=== PATIENT | female | born 1970 | race Caucasian/White ===

== ENCOUNTER 2019-05-20 05:46 | Day surgery (SDC) | payer SELFPAY | END 2019-05-20 10:30 | disposition home or self-care (01) | PROVIDERS: Family Provider Family Medicine; Visit Provider Orthopaedic Surgery | DX: S63.592A Other specified sprain of left wrist, initial encounter (principal); X50.9XXA Other and unspecified overexertion or strenuous movements or postures, initial encounter ==

== ENCOUNTER 2019-09-04 01:44 | Emergency (ER) | payer OTHER, SELFPAY ==
[2019-09-04 01:50] VITALS: BP 193/111; PULSE 64; RESP 18; TEMP 36.6; O2SAT 98; BMI 38.9
--- NOTE | 2019-09-04 01:51 | US_ITS ---
WS: [id number] ULTRASOUND ABDOMEN LIMITED CLINICAL INFORMATION: abd pain COMPARISON: None. FINDINGS: Liver Size: Normal. Craniocaudal length: 13.4 cm. Echogenicity: Normal. Surface nodularity: None. Mass (size and location): None. Bile ducts Intrahepatic ducts: Normal. Common bile duct diameter: 0.4 cm. Gallbladder Normal. Gallstones: None. Gallbladder sludge: None. Gallbladder wall thickening: None. Pericholecystic fluid: None. Sonographic Earl sign: Absent. Pancreas Normal as visualized. Right kidney: Normal. Hydronephrosis: None. Size: 11.5 cm x 4.7 cm x 4.2 cm. Abdominal aorta and IVC Visualized portions are normal. Ascites: None. US/US gall bladder [id number] IMPRESSION: Normal abdominal ultrasound. Normal gallbladder.
--- NOTE | 2019-09-04 01:51 | XR_ITS ---
WS: [id number] CHEST XRAY TECHNIQUE: Portable chest. CLINICAL INFORMATION: cp COMPARISON: None. FINDINGS: Heart: Normal cardiac silhouette. Lungs: Lungs are clear. No consolidation or pleural effusion. Bones: Normal visualized bony structures. XR/XR chest 1V portable [id number] IMPRESSION: Normal chest
--- NOTE | 2019-09-04 01:53 | ED_ITS ---
HPI - Abdominal Pain General: Chief Complaint: Abdominal Pain Stated Complaint: abd pain Time Seen by Provider: 09/04/19 01:45 Source: patient Mode of arrival: ambulatory Limitations: no limitations History of Present Illness: HPI narrative: 48-year-old female states she been having right upper quadrant pain throughout the night. States the pain radiates to her right shoulder and also right sided chest. She has point tenderness on the right side of her chest also. She states she has had gallbladder issues in the past. She has had some nausea with no vomiting. She rates her pain a 5 out of 10. MD elicited complaint: abdominal pain Pertinent past history: none Onset (ago): hour(s) Location: RUQ Quality: cramping Radiation: chest Exacerbating factors: nothing Relieving factors: nothing Associated Symptoms: Denies chills, diarrhea, dysuria, fever(s), nausea and vomiting Review of Systems Const: Denies: fever, chills, body aches or change in appetite Eyes: Denies: blurry vision or eye discomfort ENMT: Denies: throat pain or dental pain Card: Reports: chest pain Resp: Denies: shortness of breath GI: Reports: abdominal pain; Denies: nausea, vomiting or diarrhea : Denies: painful urination Musc: Denies: neck pain or back pain Skin/Breast: Denies: rash Neuro: Denies: headache Psych: Denies: depression Aniceto/Lymph: Denies: easy bruising All/Imm: Denies: hives PFS ED PFSH: Medical History Hypertension Surgical History History of surgery on left wrist Arthroscopic debridement of triangular fibrocartilage complex tear Family History Mother Hypertension Brother Hypertension Social History Smoking and tobacco status: never smoked Alcohol intake: never Physical Exam Const: COMMON NORMALS: no apparent distress, oriented x3 and healthy appearing HENMT: COMMON NORMALS: normocephalic and head/scalp atraumatic HEAD & SCALP: normocephalic and atraumatic Eye: COMMON NORMALS: PERRL and EOMs intact bilaterally PUPIL: Yes PERRL Neck/C-Spine: COMMON NORMALS: full ROM and supple Chest: COMMONS NORMALS: inspection of chest normal OTHER: right chest wall tenderness Resp: COMMON NORMALS: normal respiratory effort, no retractions, no use of accessory muscles and clear to auscultation bilaterally AUSCULTATION: clear to auscultation bilaterally Cardio: COMMON NORMALS: regular rate, regular rhythm and no murmurs RATE: regular rate RHYTHM: regular rhythm GI: COMMON NORMALS: normal to inspection, nondistended, normoactive bowel sounds, soft to palpation and no masses PALPATION: Yes soft and Yes tender Details: RUQ Extremity: COMMON NORMALS: normal to inspection and full ROM Neuro: COMMON NORMALS: oriented x3, moves all extremities and no focal motor deficits Psych: COMMON NORMALS: mental status grossly normal, thought process normal and cooperative THOUGHT PROCESS: normal thought process Skin: COMMON NORMALS: no rashes or lesions noted and no wounds GENERAL SKIN EXAM: no rashes or lesions noted Course Vital Signs: Vital signs: Vital Signs Temperature 97.8 F 09/04/19 01:50 Pulse Rate 58 L 09/04/19 03:00 Respiratory Rate 20 H 09/04/19 03:00 Blood Pressure 149/88 09/04/19 03:00 Pulse Oximetry 99 09/04/19 03:00 MDM - Abdominal Pain MDM Narrative: Medical decision making narrative: Patient presents here with right upper quadrant abdominal pain lab work and ultrasound here are negative. Patient also has right-sided chest pain. This is likely costochondritis that she is point tender to touch is worse with deep breaths then. She has no signs of coronary cause or pulmonary bruising. Patient is stable for discharge and to follow-up with her primary care doctor in 3 to 5 days. Lab Data: Labs: Lab Results 09/04/19 09/04/19 Range/Units 02:00 02:00 WBC 9.7 (4.0-10.0) 10^3/ uL RBC 4.91 (4.1-5.3) 10^6/u L Hgb 13.4 (11.5-15.3) g/dL Hct 42.0 (37.0-47.0) % MCV 85.5 (81-99) fL MCH 27.3 L (28.0-34.0) pg MCHC 31.9 (30.0-36.0) g/dL RDW 12.9 (12.1-15.1) % Plt Count 283 (130-400) 10^3/c mm MPV 10.9 H (7.4-10.4) fL Neut % (Auto) 46.2 % Lymph % (Auto) 42.5 % Chase % (Auto) 7.4 % Eos % (Auto) 2.8 % Baso % (Auto) 0.7 % Neut # (Auto) 4.5 (1.8-7.7) 10^3/u L Lymph # (Auto) 4.1 (0.8-4.8) 10^3/u L Chase # (Auto) 0.7 (0.2-0.9) 10^3/u L Eos # (Auto) 0.3 (0.0-0.8) 10^3/u L Baso # (Auto) 0.1 (0.0-0.1) 10^3/u L Nucleated RBC % (a uto) 0 % Nucleated RBCs # 0.0 /100WBC Sodium 138 (136-145) mmol/L Potassium 3.7 (3.5-5.1) mmol/L Chloride 100 (98-107) mmol/L Carbon Dioxide 24 (22-29) mmol/L Anion Gap 17.7 (5-19) BUN 13 (6-20) mg/dL Creatinine 0.8 (0.5-0.9) mg/dL GFR Calculation 76.9 L (90-130) mL/min Glucose 129 H (65-115) mg/dL Calculated Osmolal ity 284 L (285-295) mOsm/k g Calcium 9.9 (8.5-10.5) mg/dL Total Bilirubin 0.2 (0.15-1.2) mg/dL AST 18 (0-32) U/L ALT 21 (0-33) U/L Alkaline Phosphata se 90 (35-105) IU/L Total Protein 7.7 (6.6-8.7) g/dL Albumin 4.2 (3.5-5.2) g/dL Globulin 3.5 (1.3-4.6) g/dL Lipase 27 (13-60) U/L Imaging Data ^: CXR: Attestation: I personally reviewed and interpreted this imaging study as follows: My impression: no acute abnormality us gb: Radiologist's impression: no acute abnormality EKG Data ^: EKG 1: Attestation: I personally reviewed and interpreted this EKG as follows: EKG interpretation date: 09/04/19 EKG interpretation time: 03:03 Interpretation: sinus elpidio hr [address] or t wave abnormalities qrs 78 qtc 405 Discharge Plan Discharge Patient Disposition: Home, Self-Care Clinical Impression: Chest wall pain, Abdominal pain Condition: Stable Prescriptions: New EC-Naprosyn 500 mg tablet,delayed release (DR/EC) 500 mg PO BID PRN (Reason: pain) Qty: 20 RF: 0 No Action losartan 25 mg tablet 25 mg PO BID RF: 0 naproxen sodium [Aleve] 220 mg tablet 220 mg PO BID PRNRF: 0 Discharge Orders: Discharge Order (Routine); Ordered 09/04/19 Ordered By: Lazara Huggins Referrals: Rachid Calabrese MD [Primary Care Provider] - 4-7 days Discharge Activity: Resume usual activity Patient Instructions: Costochondritis (ED), Abdominal Pain (ED) Discharge Date/Time: 09/04/19 03:00 Coding Level of Care Code ED Plasterer Stucco for Chg Fwd Exam Comprehensive
[2019-09-04] MEDS: sodium chloride 0.9% 1,000 ML 999 ML IV (02:04)
[2019-09-04 02:09] LABS: Basophils # 0.1 10^3/uL (0.0-0.1); Basophils % 0.7 %; Eosinophils # 0.3 10^3/uL (0.0-0.8); Eosinophils % 2.8 %; Hemoglobin 13.4 g/dL (11.5-15.3); Lymphocytes # 4.1 10^3/uL (0.8-4.8); Lymphocytes % 42.5 %; Mean Corpuscular HGB Conc 31.9 g/dL (30.0-36.0); Mean Corpuscular Hemoglobin 27.3 pg (28.0-34.0); Mean Corpuscular Volume 85.5 fL (81-99); Mean Platelet Volume 10.9 fL (7.4-10.4); Monocytes # 0.7 10^3/uL (0.2-0.9); Monocytes % 7.4 %; Neutrophils # 4.5 10^3/uL (1.8-7.7); Neutrophils % 46.2 %; Nucleated Red Blood Cells % 0 %; Platelet Count 283 10^3/cmm (130-400); Red Blood Count 4.91 10^6/uL (4.1-5.3); Red Cell Distribution Width 12.9 % (12.1-15.1); White Blood Count 9.7 10^3/uL (4.0-10.0)
[2019-09-04 02:27] LABS: Alanine Aminotransferase 21 U/L (0-33); Albumin Level 4.2 g/dL (3.5-5.2); Alkaline Phosphatase 90 IU/L (35-105); Anion Gap 17.7 (5-19); Aspartate Amino Transferase 18 U/L (0-32); Blood Urea Nitrogen 13 mg/dL (6-20); Calcium 9.9 mg/dL (8.5-10.5); Carbon Dioxide 24 mmol/L (22-29); Chloride 100 mmol/L (98-107); Globulin 3.5 g/dL (1.3-4.6); Glomerular Filtration Rate 76.9 mL/min (90-130); Glucose 129 mg/dL (65-115); Lipase 27 U/L (13-60); Osmolality Calculated 284 mOsm/kg (285-295); Potassium 3.7 mmol/L (3.5-5.1); Sodium 138 mmol/L (136-145); Total Bilirubin 0.2 mg/dL (0.15-1.2); Total Protein 7.7 g/dL (6.6-8.7)
--- NOTE | 2019-09-04 02:53 | ECG_ITS ---
Measurements Intervals Bard Rate: 53 P: 23 [place]: 162 QRS: -7 QRSD: 78 T: -4 QT: 421 QTc: 398 SINUS BRADYCARDIA MODERATE VOLTAGE CRITERIA FOR LVH, CONSIDER NORMAL VARIANT [MEETS CRITERIA IN ONE ONE OF: R(aVL), S(V1), R(V5), R(V5/V6)+S(V1)] NONSPECIFIC T-WAVE ABNORMALITY No previous ECG available for comparison Electronically Signed On 09-04-2019 18:02:37 CDT by Doron Garnett M.D. [id number] [email or web address]
[2019-09-04 03:00] VITALS: BP 149/88; PULSE 58; RESP 20; O2SAT 99
--- NOTE | 2019-09-06 11:40 | DCPLANNER ---
global logistics manager called to check on patient after recent visit to the ER. global logistics manager asked patient if she had a follow up appointment scheduled with primary care, patient stated that she has been in contact with her primary care, and that primary care physician office will call patient with appointment information.
== END 2019-09-04 03:00 | disposition home or self-care (01) ==
PROVIDERS: Emergency Provider Emergency Medicine; Family Provider Family Medicine; PCP Family Medicine
DX: R07.89 Other chest pain (principal); R10.11 Right upper quadrant pain; I10 Essential (primary) hypertension
CPT/HCPCS: 12345; 71045; 76705; 80053; 83690; 85025; 93005; 96360; 99282; 99283; J7030

== ENCOUNTER → 2020-02-27 10:38 | Outpatient (BNVA) | payer OTHER, SELFPAY | PROVIDERS: Family Provider Family Medicine; PCP Family Medicine; Visit Provider Family Medicine | DX: Z11.59 Encounter for screening for other viral diseases (principal) | CPT/HCPCS: 87635 ==

== ENCOUNTER 2020-12-01 10:10 | Outpatient (CLI) | payer OTHER, SELFPAY ==
[2020-12-01 10:28] LABS: NT Pro B Type Natriuretic Pept 61 pg/mL (0-125)
== END 2020-12-01 10:11 | disposition home or self-care (01) ==
LOC: LAB 10:15
PROVIDERS: Family Provider Family Medicine; PCP Family Medicine; Visit Provider Family Medicine
DX: I10 Essential (primary) hypertension (principal); R06.00 Dyspnea, unspecified
CPT/HCPCS: 83880; 85378

== ENCOUNTER 2021-09-06 12:11 | Outpatient (CLI) | payer OTHER, SELFPAY ==
--- NOTE | 2021-09-06 12:29 | CT_ITS ---
WS: [id number] CTA OF THE CHEST WITH PULMONARY EMBOLISM PROTOCOL TECHNIQUE: High-resolution contrast enhanced CTA of the chest with coronal and sagittal reformatted i mages with pulmonary embolism protocol. MIP images are also reviewed. CLINICAL INFORMATION: ELEVATED D DIMER COMPARISON: CT 6 DLP: 526.[address] scans at [facility] use at least one of these dose optimization techniques: automated e xposure control; mA and/or kV adjustment per patient size (includes targeted exams where dose is matc hed to clinical indication); or iterative reconstruction. FINDINGS: Proximal main pulmonary arteries are normal. Normal segmental and subsegmental pulmonary arteries. No evidence of pulmonary embolus. Normal caliber thoracic aorta. Moderate esophageal hiatal hernia unch anged. No mediastinal or hilar lymphadenopathy. Low-attenuation LEFT thyroid nodule measuring 1.5 cm. Lungs well aerated. No acute pulmonary infiltrates. Bibasilar atelectasis. No axillary lymphadenopath y. Adrenal glands are normal. Splenic granulomas. Celiac and SMA are patent in the upper abdomen. Small hepatic cyst or hemangioma LEFT hepatic lobe unchanged. CT/CT angio chest PE protcl [id number] IMPRESSION: 1. No evidence of pulmonary embolus. 2. No acute pulmonary infiltrates. Slight atelectasis in the lung bases. 3. No mediastinal or hilar lymphadenopathy. 4. 1.5 cm LEFT thyroid nodule. This can be followed up with ultrasound.
[2021-09-06] MEDS: iohexol 350 mg/mL 100 mL Btl IV (13:18)
== END 2021-09-06 12:12 | disposition home or self-care (01) ==
LOC: RAD 12:14
PROVIDERS: PCP Family Medicine; Visit Provider Family Medicine
DX: R79.89 Other specified abnormal findings of blood chemistry (principal); R06.00 Dyspnea, unspecified; E04.1 Nontoxic single thyroid nodule
CPT/HCPCS: 71275

== ENCOUNTER 2022-03-02 09:00 | Emergency (ER) | payer OTHER, SELFPAY ==
[2022-03-02 09:21] VITALS: PULSE 72; RESP 18; TEMP 36.1; O2SAT 96; BMI 40.7
[2022-03-02 09:24] VITALS: BP 158/75
--- NOTE | 2022-03-02 09:34 | XRR_ITS ---
PROCEDURE INFORMATION: Exam: XR Right Knee Exam date and time: 03/02/2022 9:56 AM Age: 51 years old Clinical indication: Pain; Knee; Right; Additional info: Knee pain after bending knee and hearing pop in knee TECHNIQUE: Imaging protocol: Radiologic exam of the Right knee. Views: 3 views. COMPARISON: No relevant prior studies available. FINDINGS: Bones/joints: There is a small joint effusion. No fracture, dislocation or other acute abnormalities are seen. There is moderate degenerative disease with osteophytes on the patella, medial femoral condyle and tibial plateau. There is narrowing of the femoral patellar joint. Soft tissues: Normal. XR/XR knee RT 3V* [id number] IMPRESSION: 1. Joint effusion. 2. Chronic DJD. No acute bony abnormality.
--- NOTE | 2022-03-02 09:45 | USCV_ITS ---
Xin Clark Age: 51 Gender: F : 1970 Exam Date: 03/02/2022 10:04 Ordering Phys: Abel Fay Technologist: Juanjose Stoddard Exam Location: [facility]_ Indication: right leg pain PROCEDURES: Venous duplex imaging was performed in only the right lower extremity. The following venous structures were evaluated: common femoral vein, profunda vein, proximal portion of the greater saphenous vein, superficial femoral vein, and the popliteal vein. In addition, the posterior tibial and peroneal trunk were evaluated. Serial compression, augmentation maneuvers, and spectral Doppler flow evaluation were performed. FINDINGS: Normal 2-D Doppler and augmentation and compressibility throughout the lower extremity venous structures. Additional imaging through the proximal calf veins also reveals no thrombus. Limited evaluation of the greater saphenous vein is patent with no thrombus.. Medial to the right knee varicosities are noted in the patient directed area of pain. CONCLUSIONS Medial to the right knee varicosities are noted in the patient directed area of pain. No evidence of right lower extremity DVT. Cal Bond MD (Electronically Signed) Final Date: 02 March 2022 10:37 S
--- NOTE | 2022-03-02 09:46 | W.ED.EXTPRO ---
HPI - Extremity Problem General: Chief complaint: Extremity Injury, Lower Stated complaint: fall, right leg pain Time Seen by Provider: 03/02/22 09:29 History of Present Illness: Patient is a 51-year-old female comes to the ED with right leg pain. Patient says for the past couple weeks she has had generalized right leg pain that she considers mild. Yesterday she states she was going up steps and when she stepped up with her right leg onto a step she felt a pop and a sharp pain in her knee. She is now been having 7 out of 10 pain in her right knee and says it hurts for her to do any weightbearing or to fully straighten her knee. Denies any surgeries on right knee. Patient has a past medical history of DVTs. Denies any chest pain, shortness of breath or hemoptysis. Associated symptoms: Deny chest pain, fever(s) or rash Review of Systems Const: Denies: fever(s), chills or fatigue Eyes: Denies: change in vision or eye discomfort ENMT: Denies: throat pain, odynophagia, nasal discharge or nasal congestion Card: Denies: chest pain, palpitations, edema, swelling of feet/ankles, dyspnea on exertion or orthopnea Resp: Denies: dyspnea, productive cough or non-productive cough GI: Denies: abdominal pain, nausea, vomiting, diarrhea, constipation or hematochezia : Denies: flank pain, dysuria or hematuria Musc: Reports: extremity pain (Right knee and mild pain throughout right leg); Denies: neck pain, back pain or extremity swelling Skin/Breast: Denies: rash or new lesions Neuro: Denies: headache(s), numbness in extremities or weakness in extremities PFS ED PFSH: Medical History Hypertension Surgical History History of surgery on left wrist Arthroscopic debridement of triangular fibrocartilage complex tear Family History Mother Hypertension Brother Hypertension Social History Smoking and tobacco status: never smoked Alcohol intake: never Female Reproductive History: Date of last menstrual period: 12/31/21 Physical Exam Const: COMMON NORMALS: no acute distress, patient oriented x3 and alert GENERAL APPEARANCE: cooperative and comfortable HENMT: COMMON NORMALS: normocephalic HEAD & SCALP: normocephalic MOUTH: Normal oral and palatal mucosa present THROAT: posterior oropharynx normal and uvula midline Neck/C-Spine: COMMON NORMALS: supple GENERAL: Yes normal visual inspection Resp: COMMON NORMALS: normal respiratory effort, No retractions, No use of accessory muscles and clear to auscultation bilaterally AUSCULTATION: clear to auscultation bilaterally Cardio: COMMON NORMALS: regular rate, regular rhythm, S1 normal heart sound present, S2 normal heart sound present, No gallops present (Cardio), No clicks present (Cardio), No murmurs present (Cardio) and Peripheral pulses 2+ throughout RATE: regular rate RHYTHM: regular rhythm HEART SOUNDS: S1 normal heart sound present and S2 normal heart sound present PERIPHERAL PULSES: Peripheral pulses 2+ throughout GI: COMMON NORMALS: Normal to inspection, nondistended, normoactive bowel sounds present, Soft to palpation, non-tender and no masses PALPATION: Yes Soft to palpation : COMMON NORMALS: Yes no CVA tenderness BLADDER/KIDNEY EXAM: Yes no CVA tenderness Back/Pelvis: COMMON NORMALS: no CVA tenderness Extremity: NARRATIVE EXTREMITY EXAM: Right knee?tenderness throughout anterior aspect of knee. No ecchymosis or swelling noted. Limited range of motion due to pain. GENERAL: Yes calf tenderness (Right calf) Neuro: COMMON NORMALS: patient oriented x3 SENSORIUM/ORIENTATION: Yes alert GAIT: Yes Normal gait present Course Vital Signs: Vital signs: Vital Signs Temperature 97.0 F L 03/02/22 09:21 Pulse Rate 72 03/02/22 11:24 Respiratory Rate 18 03/02/22 09:21 Blood Pressure 146/97 03/02/22 11:24 Pulse Oximetry 100 03/02/22 11:24 MDM - Extremity (Nontraumatic) Medical Decision Making Patient is a 51-year-old female comes to the ED with right leg and right knee pain. Patient states she was having generalized mild right leg pain over the past week. Yesterday she was stepping up on a step and felt a pop in her right knee. Is now having pain in her right knee with any weightbearing and states she can fully straighten the knee due to pain. History of DVTs but denies any chest pain, shortness of breath or hemoptysis. Vitals are stable. Patient has some right calf tenderness upon palpation. She also has some right tenderness throughout anterior aspect of knee with limited range of motion due to pain. Neurovascular tact distally. Rest of exam is benign. Ultrasound venous duplex of right lower extremity showed no DVTs but noted some varicose veins. Knee x-ray shows joint effusion and chronic DJD. I placed order with case management for patient to be referred to Ortho for follow-up on effusion of right knee joint. Patient diagnosed with degenerative joint disease of the knee, knee joint effusion and varicose veins of right lower extremity. She was sent home with some crutches to help with ambulation. I told her that case management to be contacted in the next several days set up appoint with Ortho for follow-up. Return ED precautions given. Patient stable. Lab Data Radiology Impressions Knee X-Ray 03/02/22 09:34 IMPRESSION: 1. Joint effusion. 2. Chronic DJD. No acute bony abnormality. Discharge Plan Discharge Patient Disposition: Home Clinical Impression: Effusion of knee joint right Varicose veins of right lower extremity Qualifiers: Varicose vein complication: pain Qualified Code(s): I83.811 - Varicose veins of right lower extremity with pain Degenerative joint disease of knee, right Qualifiers: Osteoarthritis type: primary Qualified Code(s): M17.11 - Unilateral primary osteoarthritis, right knee Condition: Stable Prescriptions: No Action losartan 25 mg tablet 25 mg PO BID Tylenol 325 mg Capsule 325 mg PO QID PRN (Reason: Pain) Discharge Orders: Discharge ED (Routine); Ordered 03/02/22 Ordered By: Abel Fay Referrals: Rachid Calabrese MD [Primary Care Provider] - Discharge Diet: Regular Discharge Activity: Use walker/crutches as instructed Patient Instructions: Varicose Veins Activity Restrictions/Additional Instructions: Follow-up with medical provider as directed. Case management to be contacting you in the next several days set up appoint with Ortho for follow-up on right knee pain. Use crutches to help with ambulation. Use crutches and limit weightbearing. Return to the ER or your medical provider if condition worsens. Please read and understand discharge instructions. Thank you for choosing [facility] for your healthcare needs today. Please realize this is an emergency room and that we are providing you with a medical screening exam and this may not be complete and all inclusive of all the testing and or work up that you may need to determine your ailment or severity of your illness. It is very important that you follow up as instructed or that you return to the Emergency Department should you have concerns or if your condition changes or worsens in any way. Coding Level of Care Code ED Clinical Exercise Specialist for Amadou Fwd Exam Comprehensive
[2022-03-02 11:24] VITALS: BP 146/97; PULSE 72; O2SAT 100
--- NOTE | 2022-03-02 11:42 | DCPLANNER ---
Addendum entered by Janeen Sorto 05/18/22 11:06: Patient had a follow up appointment scheduled with ortho - patient did attend appointment. Addendum entered by Janeen Sorto 03/04/22 11:53: Patient has a follow up appointment scheduled for Monday, March 09, 2022 at 10:00 with Sandip Sexton. Clinic will call patient with appointment information. Original Note: electrician manager had message to schedule a follow up appointment for patient with ortho. electrician manager sent patients information to the front office staff at ortho. Patients information will be printed and reviewed. Clinic will call patient with appointment information.
== END 2022-03-02 11:25 | disposition home or self-care (01) ==
PROVIDERS: Emergency Provider Physician Assistant; PCP Family Medicine
DX: I83.811 Varicose veins of right lower extremity with pain (principal); M17.11 Unilateral primary osteoarthritis, right knee; M25.461 Effusion, right knee; I10 Essential (primary) hypertension
CPT/HCPCS: 73562; 93971; 99284; E0114

== ENCOUNTER 2022-04-08 08:13 | Outpatient (CLI) | payer OTHER, SELFPAY ==
--- NOTE | 2022-04-08 08:00 | MR_ITS ---
WS: [id number] MRI RIGHT KNEE NONCONTRAST TECHNIQUE: Axial PD, coronal PD fat sat, coronal PD, sagittal PD, and sagittal PD fat-sat images obta johnd. CLINICAL INFORMATION: pain COMPARISON: March 02, 2022 FINDINGS: Susceptibility artifact from surgical clips along the head of the fibula as seen on the recent radiog raphs. Distal quadriceps and patella tendons are intact. Normal ACL and PCL. Moderate tricompartmental arthr itis. Hypertrophic patella. Normal lateral meniscus. Tear of the posterior horn medial meniscus exten ding to the meniscal root and capsular fibers. Blunting of the posterior horn. Peripheral extrusion o f the medial meniscus. Advanced chondromalacia patella worse involving the lateral patella facet. Associated subchondral terrance ma. Small suprapatellar effusion. Medial and lateral patellar retinacula appear intact. Normal poplit eal fossa. Fluid and edema along the superficial and deep fibers of the MCL consistent with ligamento us injury. MCL grossly intact. Superficial varicosities in the prepatellar soft tissues. MR/MR knee RT wo con* [id number] IMPRESSION: 1. ACL and PCL are intact. 2. High-grade tear involving the posterior horn medial meniscus extending to t he meniscal root with blunting of the posterior horn. Peripheral extrusion of t he medial meniscus with involvement of the capsular fibers. 3. Ligamentous injury involving the MCL with fluid and edema along the superfi cial and deep MCL fibers. 4. Grade 4 chondromalacia patella worse involving the lateral patella facet. H ypertrophic patella. 5. Small suprapatellar effusion. Outbridge grading: grade IV: full-thickness cartilage loss with underlying bone reactive changes
== END 2022-04-08 08:14 | disposition home or self-care (01) ==
LOC: RAD 08:14
PROVIDERS: PCP Family Medicine; Visit Provider Nurse Practitioner Family
DX: M22.41 Chondromalacia patellae, right knee; S83.241A Other tear of medial meniscus, current injury, right knee, initial encounter; X58.XXXA Exposure to other specified factors, initial encounter; M25.461 Effusion, right knee
CPT/HCPCS: 73721

== ENCOUNTER 2022-05-11 11:10 | Day surgery (SDC) | payer OTHER, SELFPAY ==
[2022-05-10 13:44] VITALS: BMI 40.7
[2022-05-11] VITALS (8 sets, daily range): BP systolic 98–166; BP diastolic 56–108; PULSE 75–88; RESP 16–20; TEMP 36.3–36.8; O2SAT 93–99
[2022-05-11] MEDS: acetaminophen 1,000 MG/100 ML PIGGYBACK 400 MG IV (12:05)
--- NOTE | 2022-05-11 12:09 | P.ANESASSM_ITS ---
Pre-Anesthetic Assessment Height/Weight: Height 1.6 m Weight 104.326 kg Temp Pulse Resp BP Pulse Ox O2 Del Method 97.3 F L 82 16 166/108 98 05/11/22 11:44 05/11/22 11:44 05/11/22 11:44 05/11/22 11:44 05/11/22 11:44 05/11/22 11:44 Preop Diagnosis: Right knee medial meniscus tear and chondromalacia of the patella Operation Date: 05/11/22 12:45 Proposed Procedures p Right knee diagnostic arthroscopy [id number]? partial medial menisectomy versus root repair [id number] and 32018 S83.242A(Right) - Ming Fay DO s Meniscectomy(Right) - Ming Fay DO s Meniscal Root Repair(Right) - Ming Fay DO Familial anesthetic complications: None Was Beta Suzie taken within 24 hours: N/A Was Clonidine taken within 24 hours: N/A Last intake: Intake Last Liquid Date 05/10/22 Last Liquid Time 20:00 Last Solid Date 05/10/22 Last Solid Time 20:00 Social No alcohol and No tobacco Exam alert, oriented x 3, clear to auscultation bilaterally and regular rate & rhythm Airway Mallampati: Class II Dentition: full CV/HEM Deep Vein Thrombosis (w/ PE (post surgical many years ago - placed on eliquis for post procedure)) and Hypertension Anesthetic Plan ASA status: 2 Anesthesia: MAC and Regional (specify below) Risk of > 500 ml blood loss (7ml/kg in children): No Medications/Allergies Home Medications Medication Instructions Recorded Confirmed Last Taken Type losartan 25 mg tablet 25 mg PO BID 06/05/19 05/11/22 05/10/22 History acetaminophen 325 mg capsule 325 mg PO QID PRN Pain 03/02/22 05/11/22 05/10/22 History (Tylenol) apixaban 5 mg tablet (Eliquis) 5 mg PO BID 05/10/22 05/11/22 Unknown History Allergies Allergy/AdvReac Type Severity Reaction Status Date / Time lisinopril Allergy Intermediate ADR-Cough Verified 05/11/22 11:50 [facility] Anesthesia Medical History (Updated 05/03/22 @ 22:04 by Ming Fay DO) Chondromalacia patellae of right knee Hypertension Tear of medial meniscus of right knee Surgical History (Updated 05/10/22 @ 13:43 by Gloria Green) History of surgery on left wrist Arthroscopic debridement of triangular fibrocartilage complex tear Family History Mother Hypertension Brother Hypertension Social History Smoking and tobacco status: never smoked Alcohol intake: never Female Reproductive History Date of last menstrual period: 12/31/21 Data Anesthesia Cardiac Studies: No Data to Display
[2022-05-11] MEDS: sodium chloride 0.9% 1,000 ML 30 ML IV (12:19)
[2022-05-11] MEDS: ketorolac 30 mg/mL INJ IVP (12:20)
--- NOTE | 2022-05-11 12:44 | ANES.PROC ---
Anesthesia Procedures Procedure/Date: 05/11/22 Nerve Block ^: Nerve Block 1: Main Anesthesia: general anesthesia Time Out Performed: Yes Consent: requested by attending/covering physician, from patient, risks and benefits reviewed and patient agrees to proceed Nerve block location: adductor canal (R) Anesthesia monitors applied: pulse oximetry, EKG, BP cuff and oxygen Nerve block position: supine Anesthetic Used: ropivicaine 0.5% (30) and with decadron (4 mg) Ultrasound used to: recognize landmarks and visualize and ID femerol nerve Nerve Stimulator Used?: No Interscalene/Femoral BLK: 4 stimuplex 21 g needle used for position and inplane approach, visualize local anesthetic spread and no vascular puncture identified Injection: neg aspiration of heme Patient Tolerated Procedure: well and no complications Complications: none
[2022-05-11 12:48] LABS: Anion Gap 14.8 (5-19); Blood Urea Nitrogen 12 mg/dL (6-20); Calcium 9.5 mg/dL (8.5-10.5); Carbon Dioxide 23 mmol/L (22-29); Chloride 106 mmol/L (98-107); Creatinine Clr Calc Pharmacy 129.5726; Glomerular Filtration Rate 105.8 mL/min (90-130); Glucose 88 mg/dL (65-115); Osmolality Calculated 289 mOsm/kg (285-295); Potassium 3.8 mmol/L (3.5-5.1); Sodium 140 mmol/L (136-145)
--- NOTE | 2022-05-11 13:08 | W.PM.OPSUD ---
Surgery/Procedure H&P Update DATE OF PROCEDURE: May 11, 2022 DATE H&P PERFORMED: 04/29/22 CHANGES TO PREVIOUS DOCUMENTATION: None. Patient did have a blood clot and PE after her left knee surgery. She has seen her primary care physician and she will be on Eliquis 5 mg twice daily which will be managed by her primary care physician afterwards. The prescriptions already been sent and she will begin taking this immediately after surgery. 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 PLANNED PROCEDURE: Operation Date: 05/11/22 12:45 Proposed Procedures p Right knee diagnostic arthroscopy 92911? partial medial menisectomy versus root repair [id number] and [id number] S83.242A(Right) - Ming Fay, DO s Meniscectomy(Right) - Ming Fay, DO s Meniscal Root Repair(Right) - Ming Fay, DO
[2022-05-11] MEDS: ceFAZolin 2,000 MG in sodium chloride 0.9% (plus) 50 ML 100 MG IV (14:30)
--- NOTE | 2022-05-11 16:10 | PM.PACU ---
PACU note Narrative: Patient seen evaluated in PACU. Patient recovering well. Patient received regional anesthesia. Dressing on in place clean dry intact. Toes warm well-perfused brisk cap refill less than 2 seconds. She is able to wiggle toes as well as plantarflex and dorsiflex ankle. Exam: awake Disposition: discharged
--- NOTE | 2022-05-11 16:15 | P.OP_ITS ---
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 Implants: Arthrex meniscal root repair kit 4.75 swivel lock peek anchor 2x meniscal suture tape with loop Surgeon: Ming Fay DO Estimated blood loss: 15 mL 75min IV fluids: See anesthesia record Complications: None Findings: See operative report narrative Condition: stable Disposition: same day Brief History: Patient was seen and evaluated and worked up in the outpatient setting. Patient had findings consistent with chondromalacia on MRI of the right knee with posterior horn medial meniscus tear extending into the meniscal root. Talked about treatment options as far as nonoperative or operative invention. Through shared decision-making she elected proceed with surgical intervention of right knee diagnostic and surgical arthroscopy with possible partial medial meniscectomy possible meniscal root repair. As well as chondroplasty. She received the risk benefits complications and alternatives to surgical and nonsurgical treatment options. Understanding her wrist she agrees to proceed with surgical intervention all questions answered at this time. She did have a history of blood clots after a left knee arthroscopy and as result she has been worked up with her primary care physician and will be on Eliquis 5 mg twice daily postoperatively for blood clot prevention. Patient understands agrees with current plan. All questions answered. She elects proceed with surgical intervention. Procedure: Patient evaluated in the preoperative holding area. Consent was reviewed and signed with patient. Correct extremity was marked. Patient seen evaluated by anesthesia department underwent regional anesthesia. Once cleared for surgery was brought back to the operative suite. Patient was placed in supine position. All bony prominences well-padded patient was properly secured to the bed. Patient then had a nonsterile tourniquet applied to the right thigh. Patient subsequently went anesthesia per the anesthesia department. Right lower extremity was then prepped and draped in standard orthopedic fashion. Final timeout performed. Patient received appropriate preoperative antibiotics. Patient received local anesthesia to the portal sites and within the knee joint. Esmarch tourniquet was used exsanguinate the right lower extremity 300 mmHg. I then started with a standard 2 vertical portal diagnostic and surgical arthroscopy of the right knee. Started with my inferior lateral working portal arthroscope was then introduced into the suprapatellar pouch. Suprapatellar pouch was free of loose bodies. Patellofemoral joint was inspected had significant inflamed synovium and synovitis blocking evaluation of the patellofemoral joint. I then visualized the medial gutter which was free of loose bodies. I then introduced the arthroscope into the medial compartment. I then utilizing a spinal needle created a anteromedial working portal through outside in technique. 11 blade was used to make my portal site and then introduced my arthroscopic shaver. Arthroscopic shaver was used to perform a synovectomy of the medial compartment to evaluate the medial compartment articular cartilage. Patient had significant delamination of her medial femoral condyle which just once gently probed had full-thickness elevation of her cartilage. She had fairly pronounced grade 2 and some areas but mostly grade III chondromalacia of the medial compartment. Given this unstable articular cartilage I then performed a medial compartment chondroplasty with arthroscopic shaver and thermal wand to stable articular tissue. Once this was performed I then visualized the medial meniscus. The posterior horn the medial meniscus was probed and found to have a complex tear of the posterior horn with a radial tear detaching the posterior horn right at the root. As a result the root was unstable however this tear given that the root was detached in order to preserve patient's cartilage given her age made decision for a meniscal root repair as there was a majority of the posterior horn of the medial meniscus that was intact and had good meniscal tissue. I then opened the anterior medial incision wider with plan for my anteromedial working portal introduced Arthrex blue passport cannula. In order to not damage the articular cartilage any further I then introduced the spinal needle laterally and performed fenestration of the MCL to have some more opening of the medial compartment to allow for easier shuttling in of arthroscopic passer. Once is performed introduced the arthroscopic shaver to debride the stump of the root as well as the edge of the horn of the meniscus. I utilized a bur to bur the site of the meniscal root for appropriate meniscal healing. I then did utilize a probe and free up the posterior horn of the meniscus with plan for root repair. I then introduced suture passer utilizing Arthrex meniscal tape taking to excellent purchase of the meniscal tissue and these were luggage tagged in standard meniscal root repair fashion. These were brought out the anteromedial portal. I then subsequently planned for the meniscal root repair drill guides which were then set to 75 degrees. Introduced the drill guide and then made a small incision on the anteromedial aspect of the tibia. The probe was then rested on the posterior aspect of the tibial plateau at the site of the previous meniscal root and subsequently I then drilled for shuttling suture site once the drill bit entered I was satisfied with my root repair placement I then leaving this then shuttled the red shuttling suture through the site which was grabbed out of the anteromedial portal and loaded the meniscal suture tape which was then shuttled out of the anteromedial tibial incision. This was then pulled and had excellent fixation and appropriate placement of the meniscal root repair. At this point time I then placed the knee in full extension and then utilize self retainer identify the medial face of the tibia. I then subsequently drilled and then tapped for my suture anchor the suture anchor was then loaded. I then brought the knee into flexion and then I introduced the arthroscope to visualize my meniscal repair this was held under appropriate tension under direct visualization with otoscope and the peek anchor with loaded meniscal tape was then impacted to appropriate depth and properly secured to the tibia with excellent purchase and fixation. I then left this in place and then introduced the arthroscopic probe through the anteromedial working portal and then probed my meniscal root repair which had excellent fixation. At this point time in time I then excised the excess suture. I then completed my diagnostic and surgical arthroscopy which demonstrated the intercondylar notch was intact with an ACL and PCL. The lateral compartment had grade II chondromalacia a thermal wand and arthroscopic shaver was used to perform a lateral compartment chondroplasty to stable articular tissue mostly of the tibial plateau. The meni scus was intact laterally. The lateral gutter was free of loose bodies. I then introduced the arthroscopic shaver into the patellofemoral joint. Patient had significant chondromalacia the patellofemoral joint at the arthroscopic shaver was made performed synovectomy of the lateral and patellofemoral compartment. On the lateral femoral condyle patient had grade IV chondromalacia as well as extensive grade 3 throughout the patella and trochlear groove. Given this grade 3-4 chondromalacia I then performed chondroplasty of this compartment with thermal wand and arthroscopic shaver to stable articular cartilage tissue. This completed the arthroscopy. Fluid was removed from the joint. Tourniquet was deflated hemostasis satisfactory. All instruments were withdrawn. Patient's portal sites were closed with interrupted nylon suture. I then closed the anteromedial tibial incision with deep 0 and 2-0 Vicryl suture as well as nylon suture. Patient tolerated procedure without complications. Prior to waking up she was placed and a [place] hinged brace locked in full extension. She was then awakened from anesthesia and taken to PACU in stable condition. Disposition patient taken PACU in stable condition. She received appropriate discharge structure as well as pain medication as well as DVT prophylaxis which was sent by her primary care physician postoperatively. She will be able to range her knee from 0 to 90 degrees however will only be allowed toe-touch weightbearing at this time given her meniscal root repair. We will get patient started up in physical therapy. She will see me in office in 2 weeks. Patient understands agrees to care plan. All questions answered.
[2022-05-11] MEDS: HYDROcodone-acetaminophen 5-325 mg Tablet 1 TAB PO (17:36)
[2022-05-11] MEDS: apixaban 5 mg Tablet PO (17:54)
--- NOTE | 2022-05-11 19:41 | ANE.PACU2 ---
Inpatient post-anesthesia follow up: Airway intact: Yes Vital signs: Temperature 97.5 F Pulse Rate 88 Respiratory Rate 18 Blood Pressure 131/83 Pulse Oximetry 96 Oxygen Delivery Me thod Room Air Oxygen Flow Rate 8 Fraction of Inspir ed Oxygen Hydration adequate: Yes Nausea and vomiting: No Pain level: 1 Mental status: Baseline
== END 2022-05-11 17:55 | disposition home or self-care (01) ==
PROVIDERS: Anesthesiology; PCP Family Medicine; Visit Provider Student in an Organized Health Care Education/Training Program
PROC: (CPT 29870; principal; 2022-05-11 12:35)
PROC: (CPT 29876; 2022-05-11 12:35)
PROC: (CPT 29882; 2022-05-11 12:35)
DX: S83.241A Other tear of medial meniscus, current injury, right knee, initial encounter (principal); X58.XXXA Exposure to other specified factors, initial encounter; M22.41 Chondromalacia patellae, right knee; Z86.718 Personal history of other venous thrombosis and embolism; Z86.711 Personal history of pulmonary embolism; I10 Essential (primary) hypertension
CPT/HCPCS: 29876; 29882; 80048; C1713; J0131; J0690; J1100; J1885; J2405; J2704; J2795; J3010; J3535; J7030

== ENCOUNTER 2022-06-24 06:00 | Outpatient (RCR) | payer OTHER, SELFPAY | END 2022-06-28 23:59 | disposition home or self-care (01) | LOC: SPT 06:00 | PROVIDERS: PCP Family Medicine; Visit Provider Student in an Organized Health Care Education/Training Program | DX: S83.241D Other tear of medial meniscus, current injury, right knee, subsequent encounter (principal); M22.41 Chondromalacia patellae, right knee; X58.XXXD Exposure to other specified factors, subsequent encounter | CPT/HCPCS: 97161 ==

== ENCOUNTER 2022-06-29 06:00 | Outpatient (RCR) | payer OTHER, SELFPAY | END 2022-07-26 23:59 | disposition home or self-care (01) | LOC: SPT 06:00 | PROVIDERS: PCP Family Medicine; Visit Provider Student in an Organized Health Care Education/Training Program | DX: S83.241D Other tear of medial meniscus, current injury, right knee, subsequent encounter (principal); X58.XXXD Exposure to other specified factors, subsequent encounter; M22.41 Chondromalacia patellae, right knee | CPT/HCPCS: 97110 ==

== ENCOUNTER 2022-07-27 06:00 | Outpatient (RCR) | payer OTHER, SELFPAY | END 2022-08-26 23:59 | disposition home or self-care (01) | LOC: SPT 06:00 | PROVIDERS: PCP Family Medicine; Visit Provider Student in an Organized Health Care Education/Training Program | DX: S83.241D Other tear of medial meniscus, current injury, right knee, subsequent encounter (principal); X58.XXXD Exposure to other specified factors, subsequent encounter; M22.41 Chondromalacia patellae, right knee | CPT/HCPCS: 97110; G0283 ==

== ENCOUNTER 2022-11-10 11:13 | Outpatient (CLI) | payer OTHER, SELFPAY ==
--- NOTE | 2022-11-10 11:27 | MM_ITS ---
WS: [id number] SCREENING DIGITAL BREAST TOMOSYNTHESIS MAMMOGRAM WITH CAD HISTORY: SCREENING COMPARISON: 12/10/2013, 12/02/2013 Bilateral CC and MLO with tomosynthesis and synthetic mammography submitted. Computer aided detection analyzed. Breast composition: There are scattered areas of fibroglandular density. Asymmetry measuring 8 mm in the posterior LEFT breast central to the nipple. Not definitely seen on t he lateral projection. Otherwise stable asymmetries. MM/[place] [id number] IMPRESSION: BI-RADS: 0-Incomplete: Need additional imaging evaluation FOLLOW UP: Need Additional Imaging LEFT breast: Spot compression views (CC). True ML. Ultrasound to follow if abno rmality persists.
== END 2022-11-10 11:14 | disposition home or self-care (01) ==
PROVIDERS: PCP Family Medicine; Visit Provider Family Medicine
DX: Z12.31 Encounter for screening mammogram for malignant neoplasm of breast (principal); N64.89 Other specified disorders of breast
CPT/HCPCS: 77063; 77067

== ENCOUNTER 2022-12-20 13:54 | Outpatient (CLI) | payer OTHER, SELFPAY ==
--- NOTE | 2022-12-20 14:01 | MM_ITS ---
WS: [id number] ADDITIONAL VIEWS LEFT MAMMOGRAM with tomosynthesis. LEFT BREAST ULTRASOUND HISTORY: LT BREAST LUMP COMPARISON: 12/02/2013, 11/10/2022 LEFT MAMMOGRAM: Spot compression views and true ML with tomosynthesis and sympathetic mammography. Nodule persists in the posterior LEFT breast measuring 7 mm. This is along the 6:00 axis or just cent ral to the nipple. There is also an area of architectural distortion without associated soft tissue m ass in the upper outer quadrant of the LEFT breast which persists with additional imaging. Near the 2 -3 o'clock axis. LEFT BREAST ULTRASOUND 2-D and color Doppler imaging submitted. Ultrasound cannot identified either abnormality in the LEFT breast. Both of these areas should be fur ther evaluated. Recommend 6 month diagnostic LEFT mammogram follow-up and possible re-ultrasound eval uation. The spiculated area without mass may be a radial scar. MM/[place] [id number] IMPRESSION: BI-RADS: 3-Probably Benign FOLLOW UP: 6 Month Follow-up Recommend diagnostic mammogram 6 months and possible LEFT breast ultrasound.
== END 2022-12-20 13:55 | disposition home or self-care (01) ==
PROVIDERS: PCP Family Medicine; Visit Provider Family Medicine
DX: N63.20 Unspecified lump in the left breast, unspecified quadrant (principal)
CPT/HCPCS: 76642; 77061; G0279

== ENCOUNTER 2023-06-26 08:42 | Outpatient (CLI) | payer OTHER, SELFPAY ==
--- NOTE | 2023-06-26 08:50 | MM_ITS ---
WS: [id number] DIAGNOSTIC LEFT DIGITAL TOMOSYNTHESIS MAMMOGRAPHY WITH CAD. LEFT breast ultrasound, limited HISTORY: 6-month follow-up nodule and asymmetry LEFT breast. COMPARISON: 12/20/2022, 11/10/2022 and 12/02/2013 Technique: CC, MLO and ML views. Spot compression LEFT CC and MLO. Breast composition: There are scattered areas of fibroglandular density. Reidentified is the ill-defi norm mass which is nearly isoechoic to the adjacent breast tissue in the posterior LEFT breast. This m ass is 7 mm and extends just directly posterior and slightly inferior to the nipple line. No interval change since the prior study. This was not identified by ultrasound on the prior study will but will be reevaluated today. The previously described asymmetry and distortion in the upper outer quadrant is no longer present. LEFT breast ultrasound, limited. Ultrasound is directed to the posterior LEFT breast along the 6:00 axis. Again no ultrasound abnormal ity is identified. IMPRESSION: MM/[place] [id number] BI-RADS: 3-Probably Benign FOLLOW UP: 6 Month Follow-up Patient to return in 6 months for bilateral annual mammography. At that time th e LEFT breast nodule which is only identified by mammography can be reevaluated .
== END 2023-06-26 08:43 | disposition home or self-care (01) ==
LOC: RAD 08:45
PROVIDERS: PCP Family Medicine; Visit Provider Family Medicine
DX: N63.25 Unspecified lump in the left breast, overlapping quadrants (principal); R92.322 Mammographic fibroglandular density, left breast
CPT/HCPCS: 76642; 77061; G0279

== ENCOUNTER 2024-02-27 09:13 | Outpatient (CLI) | payer OTHER, SELFPAY ==
--- NOTE | 2024-02-27 09:18 | MM_ITS ---
WS: [id number] DIAGNOSTIC BILATERAL DIGITAL BREAST TOMOSYNTHESIS MAMMOGRAPHY WITH CAD HISTORY: L BREAST NODULE COMPARISON: 06/26/2023, 12/20/2022, 11/10/2022 TECHNIQUE: Bilateral craniocaudad, mediolateral oblique, and mediolateral views are submitted with to mosynthesis and SM. Spot compression LEFT CC and MLO. Computer aided detection utilized. Breast composition: There are scattered areas of fibroglandular density. Ill-defined nodule which is nearly isodense to the remaining breast is reidentified in the posterior central LEFT breast measuring 8 x 3 x 8 mm. This is a slightly lobulated mass and may be a benign lym ph node. There has been no interval change. Stable in size and shape since 11/10/2022. The remaining b reast demonstrate benign scattered calcifications. No architectural distortion. MM/MM diag [place] tomosynthesis [id number] IMPRESSION: BI-RADS: 3 - Probably Benign. FOLLOW UP: 1 Year Follow-up Recommend diagnostic follow-up in 1 year of the LEFT breast mass. Favor this is probably benign. Additional 1 year follow-up is recommended for surveillance.
== END 2024-02-27 09:14 | disposition home or self-care (01) ==
LOC: RAD 09:14
PROVIDERS: PCP Family Medicine; Visit Provider Family Medicine
DX: Z12.31 Encounter for screening mammogram for malignant neoplasm of breast (principal); R92.323 Mammographic fibroglandular density, bilateral breasts; N63.20 Unspecified lump in the left breast, unspecified quadrant
CPT/HCPCS: 77062; G0279

== ENCOUNTER → 2024-08-19 13:49 | Outpatient (BNVA) | payer OTHER, SELFPAY | PROVIDERS: Visit Provider Emergency Medicine | DX: B34.9 Viral infection, unspecified (principal) | CPT/HCPCS: 87400 ==